=== PATIENT | female | born 1965 | race Caucasian/White ===

== ENCOUNTER → 2017-01-11 | Outpatient (CLI) | payer OTHER | END | disposition disaster alternative care site (69) | LOC: GAMB 17:05 | DX: M96.841 Postprocedural hematoma of a musculoskeletal structure following other procedure (principal); M25.031 Hemarthrosis, right wrist; F41.9 Anxiety disorder, unspecified; Z98.61 Coronary angioplasty status; Z79.899 Other long term (current) drug therapy; Z88.0 Allergy status to penicillin; Z88.1 Allergy status to other antibiotic agents | CPT/HCPCS: A0425; A0429 ==